=== PATIENT | male | born 1990 ===

== ENCOUNTER 2024-01-12 08:13 | Emergency (ER) | payer OTHER, SELFPAY ==
--- NOTE | 2024-01-12 | ECG_ITS ---
Test Reason : DIZZINESS Blood Pressure : / mmHG Vent. Rate : 065 BPM Atrial Rate : 065 BPM P-R Int : 128 ms QRS Dur : 104 ms QT Int : 448 ms P-R-T Axes : -02 - 056 degrees QTc Int : 465 ms Normal sinus rhythm with sinus arrhythmia Nonspecific T wave abnormality Prolonged QT Abnormal ECG No previous ECGs available Referred By: Edward Knowles Electronically Signed By:MERY CONDE
--- NOTE | ~2024-01-12 | XR_ITS ---
EXAMINATION: XR CHEST CLINICAL INFORMATION: Cough COMPARISON: None available. TECHNIQUE: Frontal view of the chest was obtained. FINDINGS: Slight left basilar atelectasis. No pneumothorax. Trachea is midline. Cardiac mediastinal silhouette is not enlarged. No large pleural effusion. Osseous structures are intact. Soft tissues are unremarkable. XR/XR chest 1V IMPRESSION: Slight left basilar atelectasis. Electronically signed by: Argentina Patel MD 01/12/2024 01:57 PM EDT RP
--- NOTE | ~2024-01-12 | CT_ITS ---
EXAMINATION: CT ABDOMEN AND PELVIS WITH CONTRAST CLINICAL INFORMATION: Abdominal pain COMPARISON: None available. TECHNIQUE: Multidetector volumetric images were obtained from the superior aspect of the liver through the pubic symphysis following administration 85 mL of Omnipaque 350 intravenous contrast. Sagittal and coronal reformatted images were obtained on the technologist's workstation. Oral contrast: No This CT examination was performed using dose optimization techniques as appropriate, variously including the following: *Automated exposure control *Adjustment of mA and/or kV according to patient size (this includes techniques or standardized protocols for targeted exams where dose is matched to indication/reason for exam; i.e. extremities or head) *Use of iterative reconstruction technique DLP: 554 mGy-cm FINDINGS: EQUIPMENT OR MACHINERY CLEANER: Focally prominent small bowel loop in left upper quadrant. LUNG BASES: Left lower lobe atelectasis. LIVER, GALLBLADDER, AND BILIARY TREE: Enlarged but homogeneous liver of normal attenuation. No focal hepatic lesion or biliary ductal dilatation is present. The gallbladder is unremarkable with no evidence of radiopaque gallstones, gallbladder wall thickening, or obvious pericholecystic inflammatory changes. PANCREAS: Unremarkable. SPLEEN: Unremarkable. ADRENAL GLANDS: Unremarkable. KIDNEYS AND URETERS: The kidneys are normal in size, shape, and attenuation. No hydronephrosis, hydroureter, or calculi seen. No perinephric stranding. BLADDER: Distended bladder with diffuse mild bladder wall thickening. GASTROINTESTINAL TRACT: Small hiatal hernia. Well-distended and unremarkable stomach. Nonobstructive bowel pattern. Appendix not identified with certainty but no right lower quadrant inflammatory changes to suggest acute appendicitis. CT abdomen contains fecal material. Ascending colon is mildly thickened with fatty infiltration of the landry. The transverse and descending colon are decompressed. ABDOMINAL WALL: Small fat filled umbilical hernia. 3.4 cm soft tissue density in right inguinal hernia LYMPH NODES: Nonspecific nonenlarged left para-aortic lymph nodes. VASCULAR: Unremarkable. PELVIC VISCERA: Prominent prostate. Phleboliths. OSSEOUS STRUCTURES: Benign-appearing sclerotic density right humeral head likely bone island. CT/CT abdomen pelvis w IV con IMPRESSION: 1. No acute intra-abdominal or pelvic pathology. 2. 3.4 cm soft tissue density right inguinal hernia. Correlate with physical examination, possible undescended testicle. Consider right groin and scrotal ultrasound. 3. Mildly thickened ascending colon with fatty infiltration of the landry, question sequelae of prior colitis. 4. Distended bladder with mild diffuse bladder wall thickening. 5. Hepatomegaly. Fleischner guidelines were followed. Electronically signed by: Latrice Luna MD 01/12/2024 04:08 PM EDT RP
[2024-01-12 08:16] VITALS: BP 138/75; PULSE 65; RESP 18; TEMP 36.4; O2SAT 100; BMI 28.1
[2024-01-12 08:35] LABS: MANUAL DIFF FLAG NO
[2024-01-12 08:36] LABS: Basophils Absolute Auto 0.1 X10*3/uL (0.0-0.2); Basophils Percent Auto 0.7 % (0-2); Eosinophils Absolute Auto 0.2 X10*3/uL (0.0-0.4); Eosinophils Percent Auto 1.4 % (0-4); Hematocrit 42.6 % (42.0-52.0); Hemoglobin 15.1 g/dl (14.0-18.0); Imm Gran Pct Auto 0.7 % (0.0-0.4); Lymphocytes Absolute Auto 1.5 X10*3/uL (1.2-4.9); Lymphocytes Percent Auto 11.2 % (20-40); Mean Corpuscular HGB Conc 35.4 g/dl (31.0-36.0); Mean Corpuscular Hemoglobin 28.7 pg (27.0-33.0); Mean Corpuscular Volume 80.8 fL (80.0-98.0); Mean Platelet Volume 8.8 fL (9.4-12.4); Monocytes Absolute Auto 0.7 X10*3/uL (0.1-1.2); Monocytes Percent Auto 5.3 % (2-11); Neutrophils Absolute Auto 10.9 x10*3/uL (2.0-8.3); Neutrophils Percent Auto 80.7 % (45-73); Platelet Count 334 X10*3/uL (160-400); Red Blood Count 5.27 X10*6/uL (4.60-5.80); Red Cell Distribution Width 12.6 % (11.0-16.0); White Blood Count 13.5 X10*3/uL (4.8-10.8)
[2024-01-12] MEDS: 0.9 % Sodium Chloride 1,000 ML 999 ML IVCONT ×2 (08:39→13:52)
[2024-01-12] MEDS: ondansetron HCL 4 MG/2 ML VIAL IVPUSH (08:39)
--- NOTE | 2024-01-12 08:41 | ED.NAVMDI ---
HPI - Nausea/Vomiting/Diarrhea General Chief complaint: Nausea/Vomiting/Diarrhea Stated complaint: Vomiting, diarrhea Time Seen by Provider: 01/12/24 08:16 Source: patient Mode of arrival: ambulatory Limitations: no limitations History of Present Illness HPI Narrative: This is 33 years old male presented to the emergency department complaining of nausea vomiting. He traveled daily from [place] to [place] for work for the last couple of hours he has been vomiting unable to keep anything down denies any fever chills abdominal pain MD elicited complaint: nausea and vomiting Onset (ago): hour(s) (2) Description of vomiting: watery Description of diarrhea: watery Associated nausea: Yes Associated abdominal pain: No Quality: cramping Exacerbating factors: none Relieving factors: none Related Data Previous Rx's ?Medication ?Instructions ?Recorded metoclopramide HCl 10 mg tablet 10 mg PO Q6H PRN nausea and 01/12/24 (Reglan) vomiting #15 tabs Allergies Allergy/AdvReac Type Severity Reaction Status Date / Time No Known Allergies Allergy Verified 01/12/24 08:25 Review of Systems Cardiovascular: Cardiovascular: Reports no additional cardiovascular complaints Gastrointestinal: Gastrointestinal: Reports nausea and Reports vomiting [facility] Past Medical History Attestation statement: The following information was validated with the patient. [facility] Narrative: Denies any major medical problem and denies alcohol abuse and substance abuse Social History Social History Advance Directives: No Physical Exam Vital Signs: Vital Signs: Last Vital Signs Temp 98.6 F 01/12/24 16:37 Pulse 57 01/12/24 16:37 Resp 18 01/12/24 16:37 BP 134/83 01/12/24 16:37 Pulse Ox 97 01/12/24 16:37 O2 Del Method Room Air 01/12/24 16:37 BMI result Body Mass Index 28.1 He appear in mild distress Const: General: alert Nutritional Appearance: average body habitus Orientation/consciousness: patient oriented x3 Limitations: no limitations HEENT: Head: Yes normal to inspection General nose exam: Normal external nose present Face and sinus: Yes normal facial exam Mouth: Normal oral and palatal mucosa present Throat: Yes posterior oropharynx normal Neck: Neck: Yes normal visual inspection Chest: Chest palpation & inspection: normal inspection of the chest Resp: Effort & Inspection: normal respiratory effort Auscultation: clear to auscultation bilaterally Cardio: Jugular venous distension: no JVD Rate: regular rate Rhythm: regular rhythm GI: Inspection: Yes normal to inspection Palpation (GI): Soft to palpation, not firm and nontender Auscultation: normal bowel sounds Skin: General skin exam: no rashes or lesions noted and elasticity normal Lesions: no lesions Rashes: no rashes Trauma: no lacerations or abrasions Neuro: General: patient oriented x3 Cranial nerves: Yes CN's II-XII intact bilaterally Gait exam (Neuro): Normal gait present Course Reevaluation(s) Reevaluation #1: I re-examined the patient at this time is feeling much better tolerating p.o. well will still waiting for the CT scan of the abdomen and pelvis assuming the CT is normal anticipate discharge Time: 15:13 Medications Administered Discontinued Medications Generic Name Dose Route Start Last Admin Trade Name Freq PRN Reason Stop Dose Admin Sodium Chloride 1,000 mls @ 999 mls/hr 01/12/24 08:45 01/12/24 10:48 Ns IVCONT 01/12/24 09:45 Infused .Q1H1M SAMAN Infusion Sodium Chloride 1,000 mls @ 999 mls/hr 01/12/24 13:30 01/12/24 16:17 Ns IVCONT 01/12/24 14:30 Infused .Q1H1M SAMAN Infusion Iohexol 100 ml 01/12/24 14:32 01/12/24 14:32 Iohexol 350 Mg/Ml 100 Ml Infus..Btl IV 01/12/24 14:33 85 ml ONCE ONE Administration Lorazepam 1 mg 01/12/24 08:40 01/12/24 08:45 Lorazepam 2 Mg/Ml Vial IVPUSH 01/12/24 08:41 1 mg ONCE ONE Administration Metoclopramide HCl 10 mg 01/12/24 13:33 01/12/24 13:52 Metoclopramide Hcl 10 Mg/2 Ml Vial IVPUSH 01/12/24 13:34 10 mg ONCE ONE Administration Morphine Sulfate 4 mg 01/12/24 10:02 01/12/24 10:11 Morphine Sulfate 4 Mg/Ml Cartridge IVPUSH 01/12/24 10:03 4 mg ONCE ONE Administration Protocol Ondansetron HCl 4 mg 01/12/24 08:26 01/12/24 08:46 Ondansetron Odt 4 Mg Tab.Rapdis SUBLINGUAL 01/12/24 08:27 Not Given ONCE ONE Ondansetron HCl 4 mg 01/12/24 08:34 01/12/24 08:39 Ondansetron Hcl 4 Mg/2 Ml Vial IVPUSH 01/12/24 08:35 4 mg ONCE ONE Administration Pantoprazole Sodium 40 mg 01/12/24 10:02 01/12/24 10:11 Pantoprazole Sodium 40 Mg/10 Ml Vial IVPUSH 01/12/24 10:03 40 mg ONCE ONE Administration Prochlorperazine Edisylate 10 mg 01/12/24 17:03 01/12/24 17:17 Prochlorperazine Edisylate 10 Mg/2 Ml Vial IVPUSH 01/12/24 17:04 10 mg ONCE ONE Administration Medical Decision Making Medical Decision Making [facility] Narrative: Patient presented with the nausea vomiting will check labs administer fluid the antiemetic I received sign-out from my colleague Dr. Knowles - patient received an additional dose of Compazine for nausea. Then p.o. challenge and did well. - CT scans do not show any acute abnormality. Confirm with the patient that he has bilateral descended testicles. - Patient feeling well and ready to be discharged home. Differential Diagnosis Differential Diagnoses: The differential diagnosis associated with the presentation includes Gastroenteritis/viral syndrome/peptic ulcer disease Lab Data [facility] Lab Attestation statement: I reviewed the patient's lab results. 01/12/24 08:30 01/12/24 08:30 Labs: Lab Results 01/12/24 01/12/24 01/12/24 Range/Units 08:30 09:54 14:11 WBC 13.5 H (4.8-10.8) X10*3/uL RBC 5.27 (4.60-5.80) X10*6/uL Hgb 15.1 (14.0-18.0) g/dl Hct 42.6 (42.0-52.0) % MCV 80.8 (80.0-98.0) fL MCH 28.7 (27.0-33.0) pg MCHC 35.4 (31.0-36.0) g/dl RDW 12.6 (11.0-16.0) % Plt Count 334 (160-400) X10*3/uL MPV 8.8 L (9.4-12.4) fL Immature Gran % (Auto) 0.7 H (0.0-0.4) % Neut % (Auto) 80.7 H (45-73) % Lymph % (Auto) 11.2 L (20-40) % Wilkin % (Auto) 5.3 (2-11) % Eos % (Auto) 1.4 (0-4) % Baso % (Auto) 0.7 (0-2) % Lymph # (Auto) 1.5 (1.2-4.9) X10*3/uL Wilkin # (Auto) 0.7 (0.1-1.2) X10*3/uL Eos # (Auto) 0.2 (0.0-0.4) X10*3/uL Baso # (Auto) 0.1 (0.0-0.2) X10*3/uL Abs Immat Gran (auto) 0.10 H (0.00-0.03) X10*3/uL Absolute Neuts (auto) 10.9 H (2.0-8.3) x10*3/uL Absolute Nucleated RBC 0.000 (0.0-0.012) X10*3/uL Nucleated RBC % (auto) 0.0 (0.0-0.2) /100WBC Sodium 141 (135-145) mmol/L Potassium 3.8 (3.3-5.1) mmol/L Chloride 107 (96-108) mmol/L Carbon Dioxide 22 (22-29) mmol/L Anion Gap 16 (12-20) BUN 12 (9-16) mg/dL Creatinine 0.87 (0.5-1.4) mg/dL Estim Creat Clear Calc 132.6 Estimated GFR > 60 Random Glucose 120 H (60-115) mg/dL Lactic Acid 1.5 (0.5-2.0) mmol/L Calcium 10.2 (8.4-10.2) mg/dL Total Bilirubin 0.6 (0.0-1.0) mg/dL Direct Bilirubin 0.2 (0.0-0.5) mg/dL AST 27 (5-37) U/L ALT 31 (0-40) U/L Alkaline Phosphatase 54 (39-117) U/L Total Creatine Kinase 192 H (38-174) U/L Total Protein 7.8 (6.5-8.0) g/dL Albumin 4.7 (3.5-5.0) g/dL Lipase 29 (8-78) U/L Urine Color Dark Yellow Urine Appearance Clear Urine pH 8.5 (5.0-9.0) Ur Specific [place] 1.025 (1.005-1.025) Urine Protein 30 (1+) H (Neg-Trace) mg/dL Urine Glucose (UA) Negative (Negative) mg/dL Urine Ketones Negative (Negative) mg/dL Urine Blood Negative (Negative) Urine Nitrite Negative (Negative) Ur Leukocyte Esterase Negative (Negative) Urine RBC 0-2 (0-2) /HPF Urine WBC 0-5 (0-5) /HPF Ur Squamous Epith Cells 0-2 (0-2) /HPF Urine Bacteria None Seen (None Seen) Hyaline Casts 0-2 (0-2) /LPF Influenza Type A (PCR) NEGATIVE (Negative) Influenza Type B (PCR) NEGATIVE (Negative) RSV RNA Qual (PCR) NEGATIVE (Negative) SARS-CoV-2 RNA (RT-PCR) NEGATIVE (Negative) Radiology Impression Discussion of test interpretation with radiology: I have reviewed the radiologist's reading. Radiologist Impression: [employer] DISPATCHER: Focally prominent small bowel loop in left upper quadrant. LUNG BASES: Left lower lobe atelectasis. LIVER, GALLBLADDER, AND BILIARY TREE: Enlarged but homogeneous liver of normal attenuation. No focal hepatic lesion or biliary ductal dilatation is present. The gallbladder is unremarkable with no evidence of radiopaque gallstones, gallbladder wall thickening, or obvious pericholecystic inflammatory changes. PANCREAS: Unremarkable. SPLEEN: Unremarkable. ADRENAL GLANDS: Unremarkable. KIDNEYS AND URETERS: The kidneys are normal in size, shape, and attenuation. No hydronephrosis, hydroureter, or calculi seen. No perinephric stranding. BLADDER: Distended bladder with diffuse mild bladder wall thickening. GASTROINTESTINAL TRACT: Small hiatal hernia. Well-distended and unremarkable stomach. Nonobstructive bowel pattern. Appendix not identified with certainty but no right lower quadrant inflammatory changes to suggest acute appendicitis. CT abdomen contains fecal material. Ascending colon is mildly thickened with fatty infiltration of the landry. The transverse and descending colon are decompressed. ABDOMINAL WALL: Small fat filled umbilical hernia. 3.4 cm soft tissue density in right inguinal hernia LYMPH NODES: Nonspecific nonenlarged left para-aortic lymph nodes. VASCULAR: Unremarkable. PELVIC VISCERA: Prominent prostate. Phleboliths. OSSEOUS STRUCTURES: Benign-appearing sclerotic density right humeral head likely bone island. CT/CT abdomen pelvis w IV con IMPRESSION: 1. No acute intra-abdominal or pelvic pathology. 2. 3.4 cm soft tissue density right inguinal hernia. Correlate with physical examination, possible undescended testicle. Consider right groin and scrotal ultrasound. 3. Mildly thickened ascending colon with fatty infiltration of the landry, question sequelae of prior colitis. 4. Distended bladder with mild diffuse bladder wall thickening. 5. Hepatomegaly. Fleischner guidelines were followed. Discharge Plan Discharge Clinical Impression: Vomiting Patient Disposition: Home, Self-Care Instructions: Acute Nausea and Vomiting (ED) Prescriptions: New metoclopramide HCl [Reglan] 10 mg tablet 10 mg PO Q6H PRN (Reason: nausea and vomiting) Qty: 15 0RF Stand Alone Forms: Work/School Release Print Language: Choose Not To Answer
[2024-01-12] MEDS: LORazepam 2 MG/ML VIAL 1 MG IVPUSH (08:45)
[2024-01-12 08:51] LABS: Alanine Aminotransferase 31 U/L (0-40); Albumin Level 4.7 g/dL (3.5-5.0); Alkaline Phosphatase 54 U/L (39-117); Anion Gap 16 (12-20); Aspartate Amino Transferase 27 U/L (5-37); Bilirubin Direct 0.2 mg/dL (0.0-0.5); Bilirubin Total 0.6 mg/dL (0.0-1.0); Blood Urea Nitrogen 12 mg/dL (9-16); Calcium 10.2 mg/dL (8.4-10.2); Carbon Dioxide 22 mmol/L (22-29); Chloride 107 mmol/L (96-108); Creatinine Clr Calc Pharmacy 132.6; Estimated Glomerular Filt Rate > 60; Glucose Random 120 mg/dL (60-115); Potassium 3.8 mmol/L (3.3-5.1); Sodium 141 mmol/L (135-145); Total Protein 7.8 g/dL (6.5-8.0)
[2024-01-12 09:06] LABS: Lipase 29 U/L (8-78)
--- NOTE | 2024-01-12 10:03 | PC.NURSE ---
Patient remains tremorous, diaphoretic, MD to order more meds
--- NOTE | 2024-01-12 10:06 | MHC.EDTECH ---
Patient unable to stay still enough to obtain blood pressure reading.
[2024-01-12] MEDS: Pantoprazole Sodium 40 MG/10 ML VIAL IVPUSH (10:11)
[2024-01-12] MEDS: Morphine Sulfate 4 MG/ML CARTRIDGE IVPUSH (10:11)
[2024-01-12 10:15] LABS: Appearance Urine Clear; Color Urine Dark Yellow; Glucose Urine UA Negative (Negative); Leukocyte Esterase Urine Negative (Negative); Nitrite Urine Negative (Negative); PH 8.5 (5.0-9.0); Specific Gravity - Urine 1.025 (1.005-1.025); UMIC TRIGGER UACC YES; Urine Blood Negative (Negative); Urine Ketones Negative (Negative); Urine Protein 30 (1+) mg/dL (Neg-Trace)
[2024-01-12 10:22] LABS: Bacteria Urine None Seen (None Seen); Hyaline Casts Urine 0-2 /LPF (0-2); RBC Urine 0-2 /HPF (0-2); Squamous Epithelial Cell Urine 0-2 /HPF (0-2); WBC Urine 0-5 /HPF (0-5)
[2024-01-12 11:05] VITALS: BP 126/84; PULSE 64; RESP 16; TEMP 36.4; O2SAT 97
--- NOTE | 2024-01-12 13:11 | PC.NURSE ---
patient tolerated PO challange
[2024-01-12 13:50] VITALS: BP 145/89; PULSE 50; RESP 16; TEMP 36.6; O2SAT 97
[2024-01-12] MEDS: Metoclopramide HCl 10 MG/2 ML VIAL IVPUSH (13:52)
[2024-01-12 14:28] LABS: Lactic Acid 1.5 mmol/L (0.5-2.0)
[2024-01-12] MEDS: iohexoL 350 MG/ML 100 ML INFUS..BTL IV (14:32)
[2024-01-12 14:56] LABS: Influenza A PCR NEGATIVE (Negative); Influenza B PCR NEGATIVE (Negative); Resp Syncy Virus RNA Qual PCR NEGATIVE (Negative); SARS COV2 PCR INHOUSE NEGATIVE (Negative)
[2024-01-12 16:37] VITALS: BP 134/83; PULSE 57; RESP 18; TEMP 37; O2SAT 97
[2024-01-12] MEDS: Prochlorperazine Edisylate 10 MG/2 ML VIAL IVPUSH (17:17)
[2024-01-12 19:52] VITALS: BP 134/83; PULSE 57; RESP 18; TEMP 37; O2SAT 97
== END 2024-01-12 19:54 | disposition home or self-care (01) ==
PROVIDERS: Emergency Provider Emergency Medicine
DX: R11.2 Nausea with vomiting, unspecified (principal); R42 Dizziness and giddiness; R94.31 Abnormal electrocardiogram [ECG] [EKG]; R10.2 Pelvic and perineal pain; Z03.818 Encounter for observation for suspected exposure to other biological agents ruled out; Z79.899 Other long term (current) drug therapy
CPT/HCPCS: 0241U; 36415; 71045; 74177; 80048; 80076; 81001; 82550; 83605; 83690; 85025; 87040; 93005; 96361; 96374; 96375; 99285; J0737; J2060; J2270; J2405; J2470; J2765; Q9967